=== PATIENT | female | born 1995 | race Hispanic/Latino ===

== ENCOUNTER 2017-12-28 22:33 | Emergency (ER) | payer OTHER ==
--- NOTE | 2017-12-29 00:23 | EDPHYS ---
Physician Documentation [facility] Name: Tanesha Sher Age: 22 yrs Sex: Female : 1995 Arrival Date: 12/28/2017 Time: 22:35 Bed 27 Private MD: ED Physician Jose Eduardo Hines HPI: 12/29 00:20 This 22 yrs old Female presents to ER via Ambulatory with complaints of Sore rn Throat. 00:20 The patient presents with sore throat. rn 00:20 The patient describes throat pain as raw. Onset: The symptoms/episode began/occurred 3 rn day(s) ago. Severity of symptoms: At their worst the symptoms were moderate, in the emergency department the symptoms are unchanged. Associated signs and symptoms: Pertinent positives: chills, fever. The patient has experienced similar episodes in the past. 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 . 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 - Social history:: Smoking status: Patient/guardian denies using tobacco. - Ebola Screening: : Patient negative for fever greater than or equal to 101.5 degrees Fahrenheit, and additional compatible Ebola Virus Disease symptoms Patient denies exposure to infectious person Patient denies travel to an Ebola-affected area in the 21 days before illness onset. - Family history:: not pertinent. - Hospitalizations: : No recent hospitalization is reported. 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 Exam: 00:20 Constitutional: This is a well developed, well nourished patient who is awake, alert, rn and in no acute distress. Head/Face: Normocephalic, atraumatic. Eyes: Pupils equal round and reactive to light, extra-ocular motions intact. Lids and lashes normal. Conjunctiva and sclera are non-icteric and not injected. Cornea within normal limits. Periorbital areas with no swelling, redness, or edema. ENT: + mild pharyngeal erythema, no stridor, no exudate Neck: Trachea midline, no thyromegaly or masses palpated, and no cervical lymphadenopathy. Supple, full range of motion without nuchal rigidity, or vertebral point tenderness. No Meningismus. Neuro: Awake and alert, GCS 15, oriented to person, place, time, and situation. Cranial nerves II-XII grossly intact. Motor strength 5/5 in all extremities. Sensory grossly intact. Cerebellar exam normal. Normal gait. Vital Signs: 12/28 23:17 BP 107 / 58; Pulse 73; Resp 20; Temp 99.2(O); Pulse Ox 99% on R/A; Weight 86.18 kg (R); fc Height 5 ft. 5 in. (165.10 cm) (R); Pain 9/10; 23:17 Body Mass Index 31.62 (86.18 kg, 165.10 cm) fc MDM: 23:59 Patient medically screened. rn 12/29 00:20 Differential diagnosis: group A strep tonsillitis, laryngitis, pharyngitis. Data rn reviewed: vital signs, nurses notes, lab test result(s), and as a result, I will discharge patient. Counseling: I had a detailed discussion with the patient and/or guardian regarding: the historical points, exam findings, and any diagnostic results supporting the discharge/admit diagnosis, lab results, the need for outpatient follow up, to return to the emergency department if symptoms worsen or persist or if there are any questions or concerns that arise at home. Medical screen evaluation completed. [facility] emergency medical condition absent. Special discussion: I discussed with the patient/guardian in detail that at this point there is no indication for admission to the hospital. It is understood, however, that if the symptoms persist or worsen the patient needs to return immediately for re-evaluation. 12/28 23:22 Order name: Strep; Complete Time: 00:12 12/29 00:13 Order name: Throat Culture EDMS Administered Medications: No medications were administered Disposition: 12/29/17 00:22 Discharged to Home. Impression: Acute laryngopharyngitis. - Condition is Stable. - Discharge Instructions: Laryngitis, Pharyngitis. - Medication Reconciliation Form, Thank You Letter, Antibiotic Education, Prescription Opioid Use form. - Follow up: Private Physician; When: As needed; Reason: Recheck today's complaints, Re-evaluation by your physician. - Problem is new. - Symptoms have improved. Signatures: Dispatcher [employer] EDMS Carmina Payton RN RN Jose Eduardo Hines MD MD rn Barnett, Mark, RN RN mb3 Corrections: (The following items were deleted from the chart) 00:33 00:22 12/29/2017 00:22 Discharged to Home. Impression: Acute laryngopharyngitis. mb3 Condition is Stable. Forms are Medication Reconciliation Form, Thank You Letter, Antibiotic Education, Prescription Opioid Use. Follow up: Private Physician; When: As needed; Reason: Recheck today's complaints, Re-evaluation by your physician. Problem is new. Symptoms have improved. rn
--- NOTE | 2017-12-29 00:23 | ER ---
Nurse's Notes [facility] Name: Tanesha Sher Age: 22 yrs Sex: Female : 1995 Arrival Date: 12/28/2017 Time: 22:35 Bed 27 Private MD: Diagnosis: Acute laryngopharyngitis Presentation: 12/28 23:15 Presenting complaint: Patient states: that she is having fever and sore throat that fc started 3 days ago. Transition of care: patient was not received from another setting of care. Onset of symptoms was December 25, 2017. Risk Assessment: Do you want to hurt yourself or someone else? Patient reports no desire to harm self or others. Initial Sepsis Screen: Does the patient meet any 2 criteria? No. Patient's initial sepsis screen is negative. Does the patient have a suspected source of infection? No. Patient's initial sepsis screen is negative. Care prior to arrival: Medication(s) given: Motrin, 400 mg, last at 2100 Benadryl last at 2115. 23:15 Method Of Arrival: Ambulatory fc 23:15 Acuity: YEIMY 4 fc Triage Assessment: 23:20 General: Appears comfortable, Behavior is calm, cooperative, appropriate for age. Pain: fc Complains of pain in throat Pain currently is 9 out of 10 on a pain scale. Quality of pain is described as aching, dull, Pain began 2-3 days ago. Is continuous, Aggravated by drinking. EENT: Throat is reddened has enlarged tonsils Reports pain when swallowing. Neuro: Level of Consciousness is awake, alert, obeys commands, Oriented to person, place, time, situation. Cardiovascular: No deficits noted. Respiratory: No deficits noted. GI: No deficits noted. : No deficits noted. Derm: Skin is pink, warm \T\ dry. Musculoskeletal: Circulation, motion, and sensation intact. Capillary refill < 3 seconds, Range of motion: intact in all extremities. 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 - Social history:: Smoking status: Patient/guardian denies using tobacco. - Ebola Screening: : Patient negative for fever greater than or equal to 101.5 degrees Fahrenheit, and additional compatible Ebola Virus Disease symptoms Patient denies exposure to infectious person Patient denies travel to an Ebola-affected area in the 21 days before illness onset. - Family history:: not pertinent. - Hospitalizations: : No recent hospitalization is reported. Screenin/30 00:31 Abuse screen: Denies threats or abuse. Nutritional screening: No deficits noted. mb3 Tuberculosis screening: No symptoms or risk factors identified. Fall Risk None identified. Assessment: 00:29 General: Appears in no apparent distress. comfortable, Behavior is calm, cooperative, mb3 appropriate for age. Pain: Complains of pain in throat. Respiratory: No deficits noted. Airway is patent Respiratory effort is even, unlabored, Respiratory pattern is regular, symmetrical, Breath sounds are clear bilaterally. GI: No signs and/or symptoms were reported involving the gastrointestinal system. : No signs and/or symptoms were reported regarding the genitourinary system. Vital Signs: 12/28 23:17 BP 107 / 58; Pulse 73; Resp 20; Temp 99.2(O); Pulse Ox 99% on R/A; Weight 86.18 kg (R); fc Height 5 ft. 5 in. (165.10 cm) (R); Pain 9/10; 23:17 Body Mass Index 31.62 (86.18 kg, 165.10 cm) fc ED Course: 22:35 Patient arrived in ED. as 23:16 Triage completed. fc 23:17 Arm band placed on Patient placed in waiting room, Patient notified of wait time. fc 23:59 Jose Eduardo Hines MD is Attending Physician. rn 12/29 00:04 Brodie Son RN is Primary Nurse. mb3 00:32 Patient has correct armband on for positive identification. mb3 00:33 No provider procedures requiring assistance completed. Patient did not have IV access mb3 during this emergency room visit. Administered Medications: No medications were administered Outcome: 00:22 Discharge ordered by . rn 00:33 Discharged to home ambulatory. mb3 00:33 Condition: stable 00:33 Discharge instructions given to patient, family, Instructed on discharge instructions, follow up and referral plans. Demonstrated understanding of instructions, follow-up care. 00:33 Patient left the ED. mb3 Signatures: Carmina Payton LIVIA RN fc Shahzad, Jose Eduardo Espinosa MD MD rn Son, LIVIA Calloway RN 3
[2017-12-29 01:17] VITALS: BP 107/58; TEMP 99.2; O2SAT 99
== END 2017-12-29 00:33 | disposition home or self-care (01) ==
LOC: ER 22:33
DX: J06.0 Acute laryngopharyngitis (principal)
CPT/HCPCS: 87070; 87081; 99281

== ENCOUNTER 2018-09-07 18:33 | Emergency (ER) | payer OTHER ==
--- NOTE | 2018-09-07 20:22 | ER ---
Nurse's Notes [facility] Name: Tanesha Sher Age: 22 yrs Sex: Female : 1995 Arrival Date: 09/07/2018 Time: 18:46 Bed Treatment Private MD: Diagnosis: Influenza due to identified novel influenza A virus Presentation: 09/07 18:59 Presenting complaint: Patient states: cough, body aches, fever, and sore throat since aa5 yesterday. Transition of care: patient was not received from another setting of care. Onset of symptoms was September 2018. Risk Assessment: Do you want to hurt yourself or someone else? Patient reports no desire to harm self or others. Initial Sepsis Screen: Does the patient meet any 2 criteria? No. Patient's initial sepsis screen is negative. Does the patient have a suspected source of infection? No. Patient's initial sepsis screen is negative. Care prior to arrival: None. 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 - Social history:: Smoking status: Patient/guardian denies using tobacco. - Ebola Screening: : No symptoms or risks identified at this time. Screenin:34 Abuse screen: Denies threats or abuse. Denies injuries from another. Nutritional lp1 screening: No deficits noted. Tuberculosis screening: No symptoms or risk factors identified. Fall Risk None identified. Assessment: 19:45 General: Appears in no apparent distress. Behavior is appropriate for age, Reports lp1 feeling ill for fatigue for. Pain: Complains of pain in generalized Pain currently is 6 out of 10 on a pain scale. Neuro: No deficits noted. Cardiovascular: No deficits noted. Respiratory: Respiratory effort is even, unlabored, Breath sounds are clear bilaterally. GI: Reports diarrhea, nausea. : No signs and/or symptoms were reported regarding the genitourinary system. EENT: No deficits noted. Derm: Skin is pink, warm \T\ dry. Musculoskeletal: No deficits noted. Vital Signs: 19:00 BP 127 / 82; Pulse 104; Resp 18 S; Temp 99.0(O); Pulse Ox 98% on R/A; Weight 81.65 kg aa5 (R); Height 5 ft. 5 in. (165.10 cm) (R); Pain 8/10; 19:00 Body Mass Index 29.95 (81.65 kg, 165.10 cm) aa ED Course: 18:46 Patient arrived in ED. mr 18:46 Franky Rousseau MD is Private Physician. mr 19:00 Triage completed. aa5 19:00 Arm band placed on. aa5 19:06 Flu and/or RSV swab sent to lab. Strep swab sent to lab. aa5 19:25 Estrella Howard FNP-C [facility]. snw 19:25 Jose Eduardo Hines MD is Attending Physician. snw 19:28 Jacqui Bailey, RN is Primary Nurse. lp1 20:34 Patient has correct armband on for positive identification. lp1 20:34 No provider procedures requiring assistance completed. Patient did not have IV access lp1 during this emergency room visit. Administered Medications: No medications were administered Outcome: 20:22 Discharge ordered by . snw 20:34 Discharged to home ambulatory, with family. lp1 20:34 Condition: good 20:34 Discharge instructions given to patient, family, Instructed on discharge instructions, follow up and referral plans. medication usage, Demonstrated understanding of instructions, follow-up care, medications, Prescriptions given X 3. 20:35 Patient left the ED. lp1 Signatures: Estrella Howard FNP-C FNP-Genia BaueraHeather mr FamRadha RN RN [facility] Jacqui Bailey, LIVIA RN lp1
--- NOTE | 2018-09-07 20:23 | EDPHYS ---
Physician Documentation [facility] Name: Tanesha Sher Age: 22 yrs Sex: Female : 1995 Arrival Date: 09/07/2018 Time: 18:46 Bed Treatment Private MD: ED Physician Jose Eduardo Hines HPI: 09/07 20:34 This 22 yrs old Female presents to ER via Ambulatory with complaints of Flu snw Symptoms. 20:34 Onset: The symptoms/episode began/occurred suddenly, today. Associated signs and snw symptoms: Pertinent positives: cough, fever, nasal discharge, n/v/d, myalgias. Modifying factors: The patient symptoms are alleviated by nothing. The patient has not experienced similar symptoms in the past. The patient has not recently seen a physician. 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 - Social history:: Smoking status: Patient/guardian denies using tobacco. - Ebola Screening: : No symptoms or risks identified at this time. ROS: 20:32 Eyes: Negative for injury, pain, redness, and discharge. snw 20:32 Neck: Negative for injury, pain, and swelling, Cardiovascular: Negative for chest pain, palpitations, and edema, Respiratory: Negative for shortness of breath, cough, wheezing, and pleuritic chest pain. 20:32 Back: Negative for injury and pain, : Negative for injury, bleeding, discharge, and swelling. 20:32 Neuro: Negative for headache, weakness, numbness, tingling, and seizure, Psych: Negative for depression, anxiety, suicide ideation, homicidal ideation, and hallucinations. 20:32 Constitutional: Positive for body aches, chills, fatigue, fever, malaise, poor PO intake. 20:32 ENT: Positive for rhinorrhea, sore throat. 20:32 Abdomen/GI: Positive for nausea, vomiting, and diarrhea. 20:32 MS/extremity: Positive for myalgias. 20:32 Skin: Positive for diaphoresis. Exam: 20:32 Head/Face: Normocephalic, atraumatic. Eyes: Pupils equal round and reactive to light, snw extra-ocular motions intact. Lids and lashes normal. Conjunctiva and sclera are non-icteric and not injected. Cornea within normal limits. Periorbital areas with no swelling, redness, or edema. ENT: Nares patent. No nasal discharge, no septal abnormalities noted. Tympanic membranes are normal and external auditory canals are clear. Oropharynx with no redness, swelling, or masses, exudates, or evidence of obstruction, uvula midline. Mucous membranes moist. Neck: Trachea midline, no thyromegaly or masses palpated, and no cervical lymphadenopathy. Supple, full range of motion without nuchal rigidity, or vertebral point tenderness. No Meningismus. Chest/axilla: Normal chest wall appearance and motion. Nontender with no deformity. No lesions are appreciated. Cardiovascular: Regular rate and rhythm with a normal S1 and S2. No gallops, murmurs, or rubs. Normal PMI, no JVD. No pulse deficits. Respiratory: Lungs have equal breath sounds bilaterally, clear to auscultation and percussion. No rales, rhonchi or wheezes noted. No increased work of breathing, no retractions or nasal flaring. Abdomen/GI: Soft, non-tender, with normal bowel sounds. No distension or tympany. No guarding or rebound. No evidence of tenderness throughout. Back: No spinal tenderness. No costovertebral tenderness. Full range of motion. Skin: Warm, dry with normal turgor. Normal color with no rashes, no lesions, and no evidence of cellulitis. MS/ Extremity: Pulses equal, no cyanosis. Neurovascular intact. Full, normal range of motion. Neuro: Awake and alert, GCS 15, oriented to person, place, time, and situation. Cranial nerves II-XII grossly intact. Motor strength 5/5 in all extremities. Sensory grossly intact. Cerebellar exam normal. Normal gait. Psych: Awake, alert, with orientation to person, place and time. Behavior, mood, and affect are within normal limits. 20:32 Constitutional: The patient appears alert, awake, pale, uncomfortable. Vital Signs: 19:00 BP 127 / 82; Pulse 104; Resp 18 S; Temp 99.0(O); Pulse Ox 98% on R/A; Weight 81.65 kg aa5 (R); Height 5 ft. 5 in. (165.10 cm) (R); Pain 8/10; 19:00 Body Mass Index 29.95 (81.65 kg, 165.10 cm) aa5 MDM: 20:16 Patient medically screened. snw 20:33 Data reviewed: vital signs, nurses notes. Data interpreted: Pulse oximetry: on room air snw is 98 %. Interpretation: normal. Counseling: I had a detailed discussion with the patient and/or guardian regarding: the historical points, exam findings, and any diagnostic results supporting the discharge/admit diagnosis, the presence of at least one elevated blood pressure reading (>120/80) during this emergency department visit, lab results, the need for outpatient follow up, to return to the emergency department if symptoms worsen or persist or if there are any questions or concerns that arise at home. Special discussion: Based on the history and exam findings, there is no indication for further emergent testing or inpatient evaluation. I discussed with the patient/guardian the need to see the primary care provider for further evaluation of the symptoms. 09/07 19:01 Order name: Flu; Complete Time: 20:07 aa 09/07 19:01 Order name: Strep; Complete Time: 20:07 aa 09/07 19:42 Order name: Urine Dipstick--Ancillary (enter results) [facility] 09/07 19:42 Order name: Urine --Ancillary (enter results) [facility] 09/07 19:48 Order name: Throat Culture EDMS Administered Medications: No medications were administered Disposition: 09/07/18 20:22 Discharged to Home. Impression: Influenza due to identified novel influenza A virus. - Condition is Stable. - Discharge Instructions: Fever, Adult, Influenza, Adult, Rehydration, Adult. - Prescriptions for Tamiflu 75 mg Oral Capsule - take 1 capsule by ORAL route every 12 hours for 5 days; 10 capsule. Diclofenac Sodium 75 mg Oral Tablet Sustained Release - take 1 tablet by ORAL route 2 times per day; 30 tablet. promethazine 25 mg Oral Tablet - take 1 tablet by ORAL route every 6 hours As needed; 20 tablet. - School release form, Work release form, Medication Reconciliation Form, Thank You Letter, Antibiotic Education, Prescription Opioid Use form. - Follow up: Private Physician; When: 2 - 3 days; Reason: Recheck today's complaints, Continuance of care, Re-evaluation by your physician. Follow up: Emergency Department; When: As needed; Reason: Worsening of condition. Addendum: 09/10/2018 07:18 Co-signature as Attending Physician, Jose Eduardo Hines MD. r n Signatures: Dispatcher [employer] EDMS Estrella Howard, ELECTRIC CUTTER OPERATOR-C ELECTRIC CUTTER OPERATOR-Csnw Jose Eduardo Hines MD MD rn Calderon, Audri, RN RN aa5 Jacqui Bailey RN RN lp1 Corrections: (The following items were deleted from the chart) 09/07 20:35 20:22 09/07/2018 20:22 Discharged to Home. Impression: Influenza due to identified lp1 novel influenza A virus. Condition is Stable. Forms are Medication Reconciliation Form, Thank You Letter, Antibiotic Education, Prescription Opioid Use. Follow up: Private Physician; When: 2 - 3 days; Reason: Recheck today's complaints, Continuance of care, Re-evaluation by your physician. Follow up: Emergency Department; When: As needed; Reason: Worsening of condition. snw
[2018-09-07 21:42] LABS: Urine Blood NEGATIVE (NEG); Urine Glucose NEGATIVE (NEG); Urine Protein NEGATIVE (NEG)
[2018-09-07 22:06] VITALS: BP 127/82; TEMP 99; O2SAT 98
== END 2018-09-07 20:35 | disposition home or self-care (01) ==
LOC: ER 18:33
DX: J10.1 Influenza due to other identified influenza virus with other respiratory manifestations (principal)
CPT/HCPCS: 81003; 81025; 87070; 87081; 87804; 99283